=== PATIENT | male | born 1955 | race Caucasian/White ===

== ENCOUNTER 2020-03-24 12:49 | Emergency (ER) | payer BC ==
[~2020-03-24] VITALS: Ht 175.3 cm; Wt 76.0 kg
[2020-03-24 13:38] VITALS: BP 131/80
--- NOTE | 2020-03-24 13:41 | PHYS DOC ---
General Adult EDM: Chief Complaint: UPPER EXTREMITY PAIN HPI: HPI: 65-year-old male presents with left wrist pain. The patient was outside doing some yard work when he tripped and fell onto his outstretched left wrist to break his fall. He now feels like it has some posterior deformity. It is painful. He has baseline decreased sensation and has left hand, but states it is not worse. He can move all of his fingers. He denies any other injuries. Review of Systems: Review of Systems: Constitutional: Denies fever or chills Eyes: Denies change in visual acuity HENT: Denies nasal congestion or sore throat Respiratory: Denies cough or shortness of breath Cardiovascular: Denies chest pain or edema GI: Denies abdominal pain, nausea, vomiting, bloody stools or diarrhea : Denies dysuria Musculoskeletal: Left wrist pain Integument: Denies rash Neurologic: Denies headache, focal weakness or sensory changes Endocrine: Denies polyuria or polydipsia Lymphatic: Denies swollen glands Psychiatric: Denies depression or anxiety Heart Score: Risk Factors: Risk Factors: DM, Current or recent (<one month) smoker, HTN, HLP, family history of CAD, obesity. Risk Scores: Score 0 - 3: 2.5% MACE over next 6 weeks - Discharge Home Score 4 - 6: 20.3% MACE over next 6 weeks - Admit for Clinical Observation Score 7 - 10: 72.7% MACE over next 6 weeks - Early Invasive Strategies Allergies: Allergies: Allergies Coded Allergies Type Severity Reaction Last Updated Verified No Known Drug Allergies 03/24/20 No Physical Exam: PE: Constitutional: Well developed, well nourished, no acute distress, non-toxic appearance. [] HENT: Normocephalic, atraumatic, bilateral external ears normal, oropharynx moist, no oral exudates, nose normal. [] Eyes: PERRLA, EOMI, conjunctiva normal, no discharge. [] Neck: Normal range of motion, no tenderness, supple, no stridor. [] Cardiovascular:Heart rate regular rhythm, no murmur [] Lungs & Thorax: Bilateral breath sounds clear to auscultation [] Abdomen: Bowel sounds normal, soft, no tenderness, no masses, no pulsatile masses. [] Skin: Warm, dry, no erythema, no rash. [] Back: No tenderness, no CVA tenderness. [] Extremities: Left wrist with distal posterior displacement, no ecchymosis or swelling. [] Neurologic: Alert and oriented X 3, normal motor function, normal sensory function, no focal deficits noted. [] Psychologic: Affect normal, judgement normal, mood normal. [] EKG: EKG: [] Radiology/Procedures: Radiology/Procedures: [] Impressions: 3 view study of the left wrist Clinical indications: Injury and pain. FINDINGS: Nondisplaced transverse impacted fracture of the distal left radial metaphysis is seen. There is anterior angulation of the apex of the fracture. This results in dorsal angulation of the radial carpal articulation. No lytic process is seen. IMPRESSION: Fracture of the distal left radius. Electronically signed by: Sam Montenegro MD (03/24/2020 2:08 PM) [id number] DICTATED AND SIGNED BY: SAM MONTENEGRO MD DATE: 03/24/20 1408 CC: ERNST JOHNSON DO; ALOK JAFFE MD ~ Course & Med Decision Making: Course & Med Decision Making Pertinent Labs and Imaging studies reviewed. (See chart for details) The patient has a distal left radius fracture that is displaced posteriorly. We will attempt reduction and splinting. He will follow-up with orthopedics for definitive treatment. Use the patient's fracture into a better alignment. We placed a thumb spica splint on. The patient tolerated the procedure well without pain medication. I will give him a [place] 7.5/325 in the ER. He has a ride home. I will discharge him with a prescription for [place] 5/325 for pain. We will also give him a sling for comfort. He is stable for discharge at this time. [] Dragon Disclaimer: Dragon Disclaimer: This electronic medical record was generated, in whole or in part, using a voice recognition dictation system. Departure Departure: Impression: Primary Impression: Fracture of distal end of left radius Qualified Codes: S52.532A - Colles' fracture of left radius, initial encounter for closed fracture Disposition: HOME/RESIDENCE PRIOR TO ADM Condition: STABLE Referrals: ALOK JAFFE MD (PCP) Patient Instructions: Wrist Fracture, [id number] Scripts Hydrocodone Bit/Acetaminophen (NORCO 5-325 TABLET) 1 Each Tablet 1 TAB PO PRN Q6HRS PRN for PAIN, #14 TAB 0 Refills Prov: ERNST JOHNSON DO 03/24/20 ERNST JOHNSON DO March 24, 2020 13:41
--- NOTE | 2020-03-24 14:11 | RAD ---
3 view study of the left wrist Clinical indications: Injury and pain. FINDINGS: Nondisplaced transverse impacted fracture of the distal left radial metaphysis is seen. There is anterior angulation of the apex of the fracture. This results in dorsal angulation of the radial carpal articulation. No lytic process is seen. IMPRESSION: Fracture of the distal left radius. Electronically signed by: Esau Montenegro MD (03/24/2020 2:08 PM) [id number]
[2020-03-24] MEDS ORDERED: HYDR-3165 PO (14:59)
[2020-03-24] MEDS ORDERED: HYDROcodone/APAP 7.5/325MG 1 TAB TABLET PO ONE (15:10)
== END 2020-03-24 15:29 | disposition home or self-care (01) ==
LOC: ER 12:49
DX: S52.532A Colles' fracture of left radius, initial encounter for closed fracture (principal); W01.0XXA Fall on same level from slipping, tripping and stumbling without subsequent striking against object, initial encounter; Y93.89 Activity, other specified; Y92.096 Garden or yard of other non-institutional residence as the place of occurrence of the external cause; Y99.8 Other external cause status
CPT/HCPCS: 25605; 73110; 99284